=== PATIENT | male | born 1990 | race Hispanic/Latino ===

== ENCOUNTER 2017-02-04 08:07 | Emergency (ER) | payer SELFPAY ==
[2017-02-04 08:16] VITALS: BP 143/76; PULSE 80; RESP 19; TEMP 98.2; O2SAT 99
--- NOTE | 2017-02-04 08:39 | ED PDOC ---
Upper Extremity Pain/Injury Time Seen by Provider: 02/04/17 08:32 Chief Complaint (Nursing): Finger,Hand,&Wrist History Per: Patient (Slammed door on right hand last night with pain to right pinky and ring finger. Able to extend and flex) Onset/Duration Of Symptoms: Days (1) Current Symptoms Are (Timing): Still Present Quality: Aching Severity: Moderate Pain Scale Rating Of: 4 Exacerbating Factor(s): Movement Past Medical History Vital Signs: Last Vital Signs Temp 98.2 F 02/04/17 08:14 Pulse 80 02/04/17 08:14 Resp 19 02/04/17 08:14 BP 143/76 02/04/17 08:14 Pulse Ox 99 02/04/17 08:14 - Medical History PMH: No Chronic Diseases - Surgical History Surgical History: Tonsillectomy - Family History Family History: States: Unknown Family Hx - Home Medications Home Medications: Ambulatory Orders Medication Instructions Recorded No Known Home Med 02/04/17 - Allergies Allergies/Adverse Reactions: Allergies Allergy/AdvReac Type Severity Reaction Status Date / Time diclofenac sodium AdvReac NAUSEA Verified 02/04/17 08:20 [From [facility]] Review of Systems Musculoskeletal: Positive for: Hand Pain Neurological: Negative for: Weakness, Numbness Physical Exam - Physical Exam Appears: Positive for: Non-toxic, No Acute Distress Skin: Positive for: Normal Color, Warm, DRY Extremity: Positive for: Other (Right handtenderness 5th digit proximal phalanx. No deformity. Able to flex and extend.Good cap refill.) Neurologic/Psych: Positive for: Alert, Oriented. Negative for: Motor/Sensory Deficits - ECG O2 Sat by Pulse Oximetry: 99 Medical Decision Making Medical Decision Making: Mild angulation distal fifth metacarpal. Reduced and splinted. Disposition - Clinical Impression Clinical Impression: Fracture of fifth metacarpal bone - Patient ED Disposition Is Patient to be Admitted: No Counseled Patient/Family Regarding: Studies Performed, Diagnosis, Need For Followup, Rx Given - Disposition Referrals: Jag Collins MD [Staff Provider] - Disposition: Routine/Home Disposition Time: 09:05 Condition: FAIR Instructions: Boxer Fracture (ED)
--- NOTE | 2017-02-04 11:03 | RAD ---
PROCEDURE: Right Hand Radiographs. HISTORY: trauma COMPARISON: None. FINDINGS: BONES: There is a comminuted impacted fracture in the distal 5th metacarpal with dorsal angulation. Bone alignment and mineralization are normal. JOINTS: Normal. SOFT TISSUES: Soft tissue swelling overlying the 5th metacarpal. OTHER FINDINGS: None. IMPRESSION: Comminuted impacted fracture in the distal 5th metacarpal with dorsal angulation and overlying soft tissue swelling.
== END 2017-02-04 09:24 | disposition home or self-care (01) ==
LOC: H.ER 08:07
DX: S62.308A Unspecified fracture of other metacarpal bone, initial encounter for closed fracture (principal); W22.8XXA Striking against or struck by other objects, initial encounter; Y92.89 Other specified places as the place of occurrence of the external cause

== ENCOUNTER 2018-01-16 13:30 | Emergency (ER) | payer OTHER ==
[2018-01-16 13:50] VITALS: BP 136/85; PULSE 73; RESP 18; TEMP 98; O2SAT 99
[2018-01-16] MEDS ORDERED: Rabies Immune Globulin 150 INTLU/ML VIAL IM STA (14:38)
[2018-01-16] MEDS ORDERED: RABIES VACCINE 2.5 Units PDR IM ONE (14:39)
[2018-01-16] MEDS ORDERED: Tdap Vaccine 0.5 ml Vial (10-64 yrs) IM ONE ×2 (14:39→15:12)
--- NOTE | 2018-01-16 15:41 | ED PDOC ---
HPI: Wound Care - HPI Time Seen by Provider: 01/16/18 14:02 Chief Complaint (Nursing): Bite Chief Complaint (Provider): Dog bite - Right anterior leg History Per: Patient Exam Limitations: no limitations Onset/Duration Of Symptoms: Hrs Quality Of Symptoms: Painful Severity: Moderate Pain Scale Rating Of: 5 Additional Complaint(s): 28 yo male with no medical problems presents after a dog bite on the lower right leg. Pt states he was getting out of an uber when he was bite. Unknow if dog has rabies vaccine. PT states that he does not have tetanus UTD and would like rabies vaccinations. Pt Past Medical History Reviewed: Historical Data, Nursing Documentation, Vital Signs Vital Signs: Last Vital Signs Temp 98.0 F 01/16/18 13:46 Pulse 73 01/16/18 13:46 Resp 18 01/16/18 13:46 BP 136/85 01/16/18 13:46 Pulse Ox 99 01/16/18 13:46 - Medical History PMH: No Chronic Diseases - Surgical History Surgical History: Tonsillectomy - Family History Family History: States: Unknown Family Hx - Home Medications Home Medications: Ambulatory Orders Medication Instructions Recorded traMADol [Ultram] 50 mg PO Q8 #10 tab 02/04/17 Amoxicillin/Clavulanate [Augmentin 1 tab PO BID #20 tab 01/16/18 875 MG-125 MG] - Allergies Allergies/Adverse Reactions: Allergies Allergy/AdvReac Type Severity Reaction Status Date / Time diclofenac sodium AdvReac NAUSEA Verified 02/04/17 08:20 [From Voltaren] Review of Systems ROS Statement: Except As Marked, All Systems Reviewed And Found Negative Constitutional: Negative for: Fever, Chills Musculoskeletal: Positive for: Leg Pain (right ) Skin: Positive for: Other Physical Exam - Reviewed Nursing Documentation Reviewed: Yes Vital Signs Reviewed: Yes - Physical Exam Appears: Positive for: Well, Non-toxic, No Acute Distress Head Exam: Positive for: ATRAUMATIC, NORMAL INSPECTION, NORMOCEPHALIC Skin: Positive for: Warm. Negative for: Normal Color (Dog bite on the right leg , slightly above and lateral to the patella, distal secation slightly deeper abrasion) Eye Exam: Positive for: Normal appearance ENT: Positive for: Normal ENT Inspection Neck: Positive for: Normal Respiratory: Negative for: Accessory Muscle Use, Respiratory Distress Gastrointestinal/Abdominal: Positive for: Normal Exam, Bowel Sounds, Soft Back: Positive for: Normal Inspection Extremity: Positive for: Normal ROM Neurologic/Psych: Positive for: Alert, Oriented - ECG O2 Sat by Pulse Oximetry: 99 Medical Decision Making Medical Decision Makincc of rabies immunoglobulin injected by ER PA around the wound, irrigated and antibiotic ointment applied. Disposition - Clinical Impression Clinical Impression: Dog bite, Rabies, need for prophylactic vaccination against - Patient ED Disposition Is Patient to be Admitted: No - Disposition Disposition: Routine/Home Disposition Time: 15:44 Condition: STABLE Additional Instructions: Please return 01/19, 01/23, 01/30 for rabies vaccine. Prescriptions: Amoxicillin/Clavulanate [Augmentin 875 MG-125 MG] 1 tab PO BID #20 tab Instructions: Wound Care (DC) Forms: [employer] (Dominican)
== END 2018-01-16 15:51 | disposition home or self-care (01) ==
LOC: H.ER 13:30
DX: S81.801A Unspecified open wound, right lower leg, initial encounter (principal); W54.0XXA Bitten by dog, initial encounter; Y92.89 Other specified places as the place of occurrence of the external cause

== ENCOUNTER 2018-01-21 07:49 | Emergency (ER) | payer OTHER ==
[2018-01-21 08:00] VITALS: BP 110/63; PULSE 63; RESP 16; TEMP 98.3; O2SAT 99
[2018-01-21] MEDS ORDERED: RABIES VACCINE 2.5 Units PDR IM ONE (08:16)
--- NOTE | 2018-01-21 08:53 | ED PDOC ---
HPI: General Adult Time Seen by Provider: 01/21/18 08:16 Chief Complaint (Nursing): Rabies Vaccine Series Chief Complaint (Provider): Rabies Vaccine Series History Per: Patient History/Exam Limitations: no limitations Onset/Duration Of Symptoms: Days Current Symptoms Are (Timing): Still Present Additional Complaint(s): Donald Baldwin is a 28 year old male with no past medical history, who is presenting to the ER for a second rabies vaccine, s/p dog bite on right knee on January 16. Patient reports that he missed his dose of the vaccine on January 19 and he is taking amoxicillin. He also states that he has mild pain to his right knee , localized to the area of the bite. He denies any fever, weakness, numbness, or tingling. Patient offers no other medical complaints at this time. PMD: none provided Past Medical History Reviewed: Historical Data, Nursing Documentation, Vital Signs Vital Signs: Last Vital Signs Temp 98.3 F 01/21/18 07:59 Pulse 63 01/21/18 07:59 Resp 16 01/21/18 07:59 BP 110/63 01/21/18 07:59 Pulse Ox 99 01/21/18 09:09 - Medical History PMH: No Chronic Diseases - Surgical History Surgical History: Tonsillectomy - Family History Family History: States: Unknown Family Hx - Home Medications Home Medications: Ambulatory Orders Medication Instructions Recorded traMADol [Ultram] 50 mg PO Q8 #10 tab 02/04/17 Amoxicillin/Clavulanate [Augmentin 1 tab PO BID #20 tab 01/16/18 875 MG-125 MG] Clindamycin [Cleocin] 300 mg PO TID #21 cap 01/21/18 diaZEpam [Valium] 5 mg PO BID #5 tab 01/21/18 traMADol [Ultram] 50 mg PO TID PRN #12 tab 01/21/18 - Allergies Allergies/Adverse Reactions: Allergies Allergy/AdvReac Type Severity Reaction Status Date / Time diclofenac sodium AdvReac NAUSEA Verified 02/04/17 08:20 [From Voltaren] Review of Systems ROS Statement: Except As Marked, All Systems Reviewed And Found Negative Constitutional: Negative for: Fever Musculoskeletal: Positive for: Leg Pain (mild to right knee) Neurological: Negative for: Weakness, Numbness, Other (tingling) Physical Exam - Reviewed Nursing Documentation Reviewed: Yes Vital Signs Reviewed: Yes - Physical Exam Appears: Positive for: Non-toxic, No Acute Distress Head Exam: Positive for: ATRAUMATIC, NORMAL INSPECTION, NORMOCEPHALIC Skin: Positive for: Normal Color Eye Exam: Positive for: Normal appearance Neck: Positive for: Normal Extremity: Positive for: Normal ROM, Tenderness (and mild erythema to right knee ), Other (heeling bite to right knee). Negative for: Pedal Edema, Deformity, Swelling Neurologic/Psych: Positive for: Alert, Oriented. Negative for: Motor/Sensory Deficits - ECG O2 Sat by Pulse Oximetry: 99 (RA) Pulse Ox Interpretation: Normal Medical Decision Making Medical Decision Making: Time: Plan: 8:17 --Rabavert Vaccine Inj Patient was given his second dosage of the rabies vaccine. His antibiotics will be upgraded to add clinda. Upon provider evaluation patient is medically stable, and requires no further treatment in the ED at this time. Patient will be discharged with Rx for avelox. Counseling was provided and all questions were answered. There is agreement to discharge plan. Return if symptoms persist or worsen. Scribe Attestation: Documented by Dede Lawton, acting as a scribe for Ash Motley DO Provider Scribe Attestation: All medical record entries made by the Scribe were at my direction and personally dictated by me. I have reviewed the chart and agree that the record accurately reflects my personal performance of the history, physical exam, medical decision making, and the department course for this patient. I have also personally directed, reviewed, and agree with the discharge instructions and disposition. Disposition - Clinical Impression Clinical Impression: Dog bite - Patient ED Disposition Is Patient to be Admitted: No Counseled Patient/Family Regarding: Studies Performed, Diagnosis, Need For Followup - Disposition Referrals: FAMILY PROVIDER,NO [Primary Care Provider] - Disposition: Routine/Home Disposition Time: 09:05 Condition: STABLE Additional Instructions: Take antibiotics as directed. Return for next rabies vaccine or see your doctor for remainder of vaccine series. Prescriptions: Clindamycin [Cleocin] 300 mg PO TID #21 cap diaZEpam [Valium] 5 mg PO BID #5 tab traMADol [Ultram] 50 mg PO TID PRN #12 tab PRN Reason: Pain, Moderate (4-7) Instructions: Animal Bites (DC), Rabies Vaccine Forms: [employer] (Bots[place]an)
== END 2018-01-21 09:19 | disposition home or self-care (01) ==
LOC: H.ER 07:49 → SUPCPDRO 07:49 → H.ER 09:19
DX: Z29.14 Encounter for prophylactic rabies immune globulin (principal)

== ENCOUNTER 2018-01-24 09:51 | Emergency (ER) | payer OTHER ==
[2018-01-24 10:41] VITALS: BMI 18.3
[2018-01-24] MEDS ORDERED: RABIES VACCINE 2.5 Units PDR IM ONE (10:41)
--- NOTE | 2018-01-24 10:44 | ED PDOC ---
HPI: General Adult Time Seen by Provider: 01/24/18 10:21 Chief Complaint (Nursing): Rabies Vaccine Series Chief Complaint (Provider): 3rd rabies vacine History Per: Patient History/Exam Limitations: no limitations Onset/Duration Of Symptoms: Days Have you had recent travel within the past 21 days to any of the following countries: [place], [place], [place] or [place]?: No Additional Complaint(s): 28 yo male presents to ER for 3rd rabies vaccine and evaluation of left hand injury. 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 No active bleeding. Pt currently taking clindamycin and Augmentin for previous dog bite. PT states he cleaned hand after incident. Pt also reports improvement in redness of knee with decreased pain. Past Medical History Reviewed: Historical Data, Nursing Documentation, Vital Signs Vital Signs: Last Vital Signs Temp 97.9 F 01/24/18 10:39 Pulse 65 01/24/18 10:39 Resp 20 01/24/18 10:39 BP 128/76 01/24/18 10:39 Pulse Ox 100 01/24/18 10:39 - Medical History PMH: No Chronic Diseases - Surgical History Surgical History: Tonsillectomy - Family History Family History: States: Unknown Family Hx - Living Arrangements Living Arrangements: With Family - Social History Current smoker - smoking cessation education provided: No - Home Medications Home Medications: Ambulatory Orders Medication Instructions Recorded traMADol [Ultram] 50 mg PO Q8 #10 tab 02/04/17 Amoxicillin/Clavulanate [Augmentin 1 tab PO BID #20 tab 01/16/18 875 MG-125 MG] Clindamycin [Cleocin] 300 mg PO TID #21 cap 01/21/18 diaZEpam [Valium] 5 mg PO BID #5 tab 01/21/18 traMADol [Ultram] 50 mg PO TID PRN #12 tab 01/21/18 - Allergies Allergies/Adverse Reactions: Allergies Allergy/AdvReac Type Severity Reaction Status Date / Time diclofenac sodium AdvReac NAUSEA Verified 01/24/18 10:39 [From Voltaren] Review of Systems ROS Statement: Except As Marked, All Systems Reviewed And Found Negative Constitutional: Negative for: Fever, Chills Gastrointestinal: Negative for: Nausea, Vomiting Physical Exam - Reviewed Nursing Documentation Reviewed: Yes Vital Signs Reviewed: Yes - Physical Exam Appears: Positive for: Well, Non-toxic, No Acute Distress Head Exam: Positive for: ATRAUMATIC, NORMAL INSPECTION, NORMOCEPHALIC Skin: Positive for: Warm. Negative for: Normal Color (irregular, linear abrasion on left thumb, approx 2 cm and multiple other superficial abrasion on the left hand. ) Eye Exam: Positive for: Normal appearance ENT: Positive for: Normal ENT Inspection Neck: Positive for: Normal, Painless ROM Respiratory: Negative for: Accessory Muscle Use Back: Positive for: Normal Inspection Extremity: Positive for: Normal ROM Neurologic/Psych: Positive for: Alert, Oriented Disposition - Clinical Impression Clinical Impression: Encounter for repeat administration of rabies vaccination, Dog bite - Patient ED Disposition Is Patient to be Admitted: No - Disposition Disposition: Routine/Home Disposition Time: 10:46 Condition: STABLE Forms: [employer] (Mexican)
[2018-01-24 10:47] VITALS: BP 128/76; PULSE 65; RESP 20; TEMP 97.9; O2SAT 100
== END 2018-01-24 11:39 | disposition home or self-care (01) ==
LOC: H.ER 09:51
DX: Z29.14 Encounter for prophylactic rabies immune globulin (principal)